=== PATIENT | male | born 1980 | race Caucasian/White ===

== ENCOUNTER 2017-08-06 23:57 | Emergency (ER) | payer OTHER ==
[2017-08-07] MEDS ORDERED: Ondansetron HCl/PF 4 MG/2 ML Vial ONE (00:27)
[2017-08-07] MEDS ORDERED: cefTRIAXone\\ROCEPHIN 2 GM VIAL ONE (01:36)
[2017-08-07] MEDS ORDERED: Iopamidol 300 61% 50 ML VIAL FS ONE (04:09)
--- NOTE | 2017-08-07 07:13 | CON ---
DATE OF CONSULTATION: 08/07/2017 HISTORY OF PRESENT ILLNESS: This is a 37-year-old male who about 2 hours ago was having sexual rela tions with his when he heard a pop, had pain, immediate loss of erection and swelling of the pe nis and scrotum. He also had a fair amount of blood come out of the urethra, after this occurred an d has had blood at the meatus when he got to the emergency room. He has a prior history of testicul ar torsion, he believes it was on the left testicle that was removed, and the right was pexed. This was when he was living in [place]. He has not had problems with urinary tract infection, sto ne disease. PAST SURGICAL HISTORY: He has had no other surgeries. PAST MEDICAL HISTORY: He has no other medical conditions. ALLERGIES: He has no allergies. MEDICATIONS: He takes no routine medications. SOCIAL HISTORY: He quit smoking in the past. He drinks some beer. FAMILY HISTORY: Otherwise, unremarkable. PHYSICAL EXAMINATION: His abdomen is soft. He has tenderness in the lower abdomen in the midline, tenderness along the uncircumcised phallus, blood at the urethral meatus, tenderness to the scrotum. The one testicle was palpable without abnormality. There is ecchymosis on the shaft of the skin a nd both sides of the scrotum with more being on the left, certainly hematoma present on exam. I did not do a rectal. I assisted Dr. Chiang doing a retrograde urethrogram. This was done by retracti ng the foreskin and sterilely prepping the glans. We initially tried with a Anu tree, but cou ld not get contrast stay in the urethra kept coming back around it, so under sterile conditions, I p laced a 10-I[place]ic Flores catheter placed about 1 mL in the balloon after anesthetizing urethra with 2 % Xylocaine jelly. We then injected in a retrograde manner showing a urethral injury at the site of the penoscrotal junction on the dorsum of the urethra extending into the cavernosal bodies. This w as all done under sterile technique. I talked with Dr. Doe the ER physician and the patient as well as his family about the findings. He has a fractured penis and has a urethral injury with it. This fractured penis is something that I had repaired before urethral injuries associated with it, not repaired one for a great number of years and I was asked to see if this patient could be transfe rred to a higher level of care because some of the risks that are inherent in order to maintain not just potency, but problems related to urethral stricture or shortening of the urethra or penis. He is going to see if he can get this patient transferred to a higher level of care. All questions wer e answered of the patient and of his family. He did receive 2 grams of Rocephin.
--- NOTE | 2017-08-07 07:42 | RAD ---
RETROGRADE URETEROGRAM: HISTORY: Penile pain and scrotal hematoma. PROCEDURE: A retrograde ureterogram was performed in the presence of and assistance of Dr. Mendez Erickson. Indesiree susi, exam was attempted with a Anu Tree and about 30 cc of contrast was injected into the d istal urethra. This [place] Tree device was then removed and a 12 Lithuanian Flores catheter was placed by Dr. Erickson. Contrast (15 ml) was then again administered under fluoroscopy. FINDINGS: There is filling of the penile urethra. The bulbar urethra was initially not opacified. After the placement of the Flores catheter, the contrast was injected again under fluoroscopy. There is contra st extravasation in the dorsal aspect of the anterior urethra likely in the region of the junction o f the penile and bulbar urethra. No filling of the urinary bladder is seen. The Flores catheter was again removed at the end of the exam by Dr. Erickson. IMPRESSION: Anterior tear of the urethra. Findings are discussed in person with Dr. Erickson at 1:20 a.m. CODE CR POS: GELY
== END 2017-08-07 03:11 | disposition short-term general hospital (02) ==
LOC: ERS 23:57
DX: S39.840A Fracture of corpus cavernosum penis, initial encounter (principal); S37.30XA Unspecified injury of urethra, initial encounter; X50.9XXA Other and unspecified overexertion or strenuous movements or postures, initial encounter
CPT/HCPCS: 51610; 74450; 94760; 96365; 96375; 96376; J0696; J1170; J2405

== ENCOUNTER 2022-06-14 13:44 | Outpatient (CLI) | payer BC | END 2022-06-14 13:45 | disposition home or self-care (01) | LOC: LABBT 13:44 | PROVIDERS: ATTEND Family Medicine | DX: G56.01 Carpal tunnel syndrome, right upper limb (principal); Z20.822 Contact with and (suspected) exposure to COVID-19 | CPT/HCPCS: 87811 ==

== ENCOUNTER 2022-06-17 08:03 | Day surgery (SDC) | payer BC ==
[2022-06-16 09:45] VITALS: BMI 33.2
[2022-06-17 09:03] LABS: #Basophils 0.1 thou/uL (0.0-0.2); #Eosinphils 0.3 thou/uL (0.0-0.7); #Lymphocytes 2.5 thou/uL (1.20-3.40); #Monocytes 1.1 thou/uL (0.11-0.59); %Basophils 0.7 % (0.0-1.0); %Eosinophils 2.6 % (0.0-10.0); %Lymphocytes 25.5 % (21.0-51.0); %Monocytes 11.3 % (0.0-10.0); Hemoglobin 16.3 g/dL (14.0-18.0); Mean Corpuscular HGB CONC 33.6 g/dL (32.0-36.0); Mean Corpuscular Hemoglobin 33.2 pg (27.0-31.0); Mean Corpuscular Volume 98.8 fL (78.0-98.0); Mean Platelet Volume 8.8 fL (7.4-10.4); Platelet Count 239 thou/uL (130-400); RBC Distribution Width 11.8 % (11.5-14.5); Red Blood Cell (RBC) Count 4.89 mill/uL (4.70-6.10)
[2022-06-17] MEDS ORDERED: CEFAZOLIN 2 GM VIAL ONE (09:05)
[2022-06-17] MEDS ORDERED: Sodium Chloride 0.9% 100 ML ONE (09:05)
[2022-06-17] MEDS ORDERED: Bupivacaine PF 0.5% 30 ML VIAL ONE (12:01)
[2022-06-17] MEDS ORDERED: Bupivacaine 0.25% 10 ML VIAL ONE (12:01)
[2022-06-17] MEDS ORDERED: fentaNYL Citrate/PF 100 MCG/2 ML SYRINGE ONE ×2 (12:10→12:41)
[2022-06-17] MEDS ORDERED: Midazolam HCl 2 mg/2 ml Vial ONE (12:20)
[2022-06-17] MEDS ORDERED: Dexamethasone 20 MG/5 ML VIAL ONE (12:22)
[2022-06-17] MEDS ORDERED: Ondansetron PF 4 MG/2 ML Vial ONE (12:22)
[2022-06-17] MEDS ORDERED: Ketorolac Tromethamine 30 MG/ML VIAL ONE (12:22)
[2022-06-17] MEDS ORDERED: PROPOFOL 200 MG/20 ML VIAL ONE (12:22)
[2022-06-17] MEDS ORDERED: Lidocaine 1% PF 5 ML VIAL ONE (12:22)
== END 2022-06-17 14:35 | disposition home or self-care (01) ==
LOC: SDC 08:03
PROVIDERS: ATTEND Orthopaedic Surgery
PROC: 01N50ZZ Release Median Nerve, Open Approach (ICD-10-PCS; principal; 2022-06-17)
DX: G56.01 Carpal tunnel syndrome, right upper limb (principal); G56.22 Lesion of ulnar nerve, left upper limb; M19.90 Unspecified osteoarthritis, unspecified site
CPT/HCPCS: 85025; J0690; J1100; J1885; J2250; J2405; J2704; J3490; S0020